=== PATIENT | male | born 1965 | race Caucasian/White ===

== ENCOUNTER 2018-06-25 14:55 | Inpatient (IN) | payer MEDICARE, MEDICAID ==
--- NOTE | 2018-06-25 15:59 | ED Physician Documentation ---
PD HPI SKIN - Stated complaint Stated Complaint: R FLANK RASH / MS - Chief complaint Chief Complaint: Abd Pain - History obtained from History obtained from: Patient - History of Present Illness Timing - onset: How many days ago (5-6) Timing - duration: Days (5-6) Timing - details: Gradual onset, Still present Location: Back, Other (left buttock and perineal area) Quality / character: Discolored (red), Swelling. No: Painful, Vesicular Associated symptoms: N/V/D (no vomiting but has had less appetite and intake, and has had diarrhea for several days.), Other (general weakness increased over baseline). No: Fever Contributing factors: Recent illness (He currently is having some nausea with less appetite and diarrhea for the last several days. He has chronic MS and usually is able to just transfer from bed to toilet and does have chronic weakn ess but lives at home with his significant other. The last 5 days he has been able to transfer due to increased weakness generally. He has had the diarrhea and been unable to get up and get cleaned well. His partner today noticed an extensive redness rash over the back buttocks and perineal area mainly on the right side. He has not had any noted fever. He denies significant pain to the area but says he usually does not have good sensation there.) Similar symptoms before: Has not had sx before (He has not had a exacerbation of weakness to this degree for many years. He previously had seen a neurologist who had clinics here at [facility]. He has not had a neurologist for several years. He is not on any MS medicines per se. He has been getting by at home with this his primary care provider. He had not had any recent change in medicines. No recent antibiotics.) Recently seen: Not recently seen Review of Systems Constitutional: denies: Fever Nose: denies: Rhinorrhea / runny nose, Congestion Throat: denies: Sore throat Cardiac: denies: Chest pain / pressure Respiratory: denies: Cough GI: reports: Nausea, Diarrhea. denies: Abdominal Pain, Vomiting Skin: reports: Rash (just noted today, but not sure of duration, looks several days in the developing.) Neurologic: reports: Generalized weakness. denies: Confused, Altered mental status, Headache PD PAST MEDICAL HISTORY - Past Medical History Past Medical History: Yes Cardiovascular: None Respiratory: None Neuro: Multiple sclerosis Endocrine/Autoimmune: Other Other Past Medical History: MS - Present Medications Home Medications: Ambulatory Orders Medication Instructions Recorded Confirmed Baclofen 20 mg PO BID PRN 06/25/18 06/25/18 Donepezil HCl 10 mg PO DAILY 06/25/18 06/25/18 Sertraline HCl 200 mg PO DAILY 06/25/18 06/25/18 - Allergies Allergies/Adverse Reactions: Allergies Allergy/AdvReac Type Severity Reaction Status Date / Time No Known Drug Allergies Allergy Verified 06/25/18 15:15 - Social History Does the pt smoke?: No Smoking Status: Never smoker Does the pt drink ETOH?: No Does the pt have substance abuse?: Yes Substance Use and Type: Marijuana PD ED PE NORMAL - Vitals Vital signs reviewed: Yes - General General: Alert and oriented X 3, Well developed/nourished - HEENT HEENT: Ears normal, Pharynx benign. No: Moist mucous membranes - Neck Neck: Supple, no meningeal sign, No adenopathy - Cardiac Cardiac: RRR (tachycardic), No murmur - Respiratory Respiratory: Clear bilaterally - Abdomen Abdomen: Normal bowel sounds, Soft, Non tender, Non distended, No organomegaly - Male Male : Other (redness of inguinal area and perirectal area but extensive cellulitis with surface yellow/green discharge. Red demarcation c/w some element of yeast. ) Results - Vitals Vitals: Vital Signs - 24 hr 06/25/18 06/25/18 06/25/18 15:08 15:23 17:36 Temperature 36.8 C Heart Rate 110 H 100 99 Respiratory 20 18 Rate Blood Pressure 138/101 H 150/101 H O2 Saturation 97 96 96 06/25/18 19:00 Temperature Heart Rate 86 Respiratory 20 Rate Blood Pressure 130/79 O2 Saturation 97 Oxygen O2 Source Room air - Labs Labs: Laboratory Tests 06/25/18 06/25/18 06/25/18 16:42 16:42 16:42 WBC 32.1 H RBC 4.90 Hgb 14.1 Hct 42.8 MCV 87.3 MCH 28.7 MCHC 32.9 RDW 13.6 Plt Count 428 MPV 8.8 Neut # (Auto) Not Reportable Lymph # (Auto) Not Reportable [place] # (Auto) Not Reportable Eos # (Auto) Not Reportable Baso # (Auto) Not Reportable Absolute Nucleated RBC Not Reportable Total Counted 100 Band Neuts % (Manual) 4 Abnorm Lymph % (Manual) 0 Metamyelocytes % 2 H Nucleated RBC % Not Reportable Neutrophils # (Manual) 28.6 H Lymphocytes # (Manual) 1.0 L Monocytes # (Manual) 1.6 H Eosinophils # (Manual) 0.3 Basophils # (Manual) 0.0 Differential Comment MANUAL DIFFERENTIAL Manual Slide Review Indicated Platelet Estimate NORMAL (130-450,000) Platelet Morphology NORMAL APPEARANCE RBC Morph Micro Appear NORMAL APPEARANCE Sodium 131 L Potassium 4.3 Chloride 93 L Carbon Dioxide 22 Anion Gap 16.0 H BUN 27 H Creatinine 1.0 Estimated GFR (MDRD) 78 L Glucose 117 H Lactic Acid 1.3 Calcium 8.8 Total Bilirubin 1.2 H AST 26 ALT 27 Alkaline Phosphatase 111 Total Creatine Kinase 57 Total Protein 7.3 Albumin 3.0 L Globulin 4.3 H Albumin/Globulin Ratio 0.7 L Lipase 42 Urine Color Urine Clarity Urine pH Ur Specific [place] Urine Protein Urine Glucose (UA) Urine Ketones Urine Occult Blood Urine Nitrite Urine Bilirubin Urine Urobilinogen Ur Leukocyte Esterase Urine RBC Urine WBC Ur Squamous Epith Cells Amorphous Sediment Urine Bacteria Ur Microscopic Review Urine Culture Comments 06/25/18 19:22 WBC RBC Hgb Hct MCV MCH MCHC RDW Plt Count MPV Neut # (Auto) Lymph # (Auto) [place] # (Auto) Eos # (Auto) Baso # (Auto) Absolute Nucleated RBC Total Counted Band Neuts % (Manual) Abnorm Lymph % (Manual) Metamyelocytes % Nucleated RBC % Neutrophils # (Manual) Lymphocytes # (Manual) Monocytes # (Manual) Eosinophils # (Manual) Basophils # (Manual) Differential Comment Manual Slide Review Platelet Estimate Platelet Morphology RBC Morph Micro Appear Sodium Potassium Chloride Carbon Dioxide Anion Gap BUN Creatinine Estimated GFR (MDRD) Glucose Lactic Acid Calcium Total Bilirubin AST ALT Alkaline Phosphatase Total Creatine Kinase Total Protein Albumin Globulin Albumin/Globulin Ratio Lipase Urine Color YELLOW Urine Clarity HAZY Urine pH 6.5 Ur Specific [place] 1.015 Urine Protein TRACE Urine Glucose (UA) NEGATIVE Urine Ketones 15 H Urine Occult Blood SMALL H Urine Nitrite NEGATIVE Urine Bilirubin NEGATIVE Urine Urobilinogen 1 (NORMAL) Ur Leukocyte Esterase TRACE H Urine RBC 0-5 Urine WBC 0-3 Ur Squamous Epith Cells MANY Squamous H Amorphous Sediment Moderate Urine Bacteria Few Ur Microscopic Review INDICATED Urine Culture Comments NOT INDICATED - Rads (name of study) abd/pelvic CT Radiology: Prelim report reviewed (cellulitic changes. No gas formation nor abscesses. No intraabdominal process), See rad report PD MEDICAL DECISION MAKING - ED course Complexity details: re-evaluated patient (He is given IV antibiotics to cover staph and strep and also given IV antifungals as it looks like some element of yeast infection 2. He is given significant IV hydration. We will obtain stool studies.), considered differential (Significant cellulitis. He has had diarrhea recently that can be evaluated with stool culture. This likely caused the exacerbation of weakness over his baseline MS. So he seems dehydrated and has had the diarrhea and but unable to get out of bed and has quite extensive yeast appearing and cellulitic rash over the right buttocks perineum and all the way on the right side of the back up to the scapular area. He does have an elevated white count. He has a bandemia. I believe he needs to be treated aggressively with IV medications and good hygiene and also a 10 to hydration in the diarrhea. He does not have markers of sepsis per se but still seems sick enough to be hospitalized. The CT scan does not show any evidence for necrotizing fasciitis nor clostridial type infection.), d/w patient Departure - Departure Disposition: 66 [facility] DC/Xfer Clinical Impression: Exacerbation of multiple sclerosis, Yeast infection of the skin Cellulitis Qualifiers: Site of cellulitis: trunk Site of cellulitis of trunk: back Qualified Code(s): L03.312 - Cellulitis of back [any part except buttock] Leukocytosis Qualifiers: Leukocytosis type: bandemia Qualified Code(s): D72.825 - Bandemia Diarrhea Qualifiers: Diarrhea type: unspecified type Qualified Code(s): R19.7 - Diarrhea, unspecified Condition: Stable Record reviewed to determine appropriate education?: Yes Discharge Date/Time: 06/25/18 20:17
[2018-06-25] MEDS ORDERED: SODIUM CHLORIDE 0.9% 1,000 ML IV ONE (16:25)
[2018-06-25] MEDS ORDERED: FLUCONAZOLE 200 MG/100 ML 100 ML IV ONE (16:26)
[2018-06-25] MEDS ORDERED: methylPREDNISolone SUCCINATE 500 MG in SODIUM CHLORIDE 0.9% 100ML 100 ML IV ONE (16:28)
[2018-06-25 16:51] LABS: BASOPHILS % (AUTO) 0.4 %; EOSINOPHILS % (AUTO) 0.2 %; HGB - HEMOGLOBIN 14.1 g/dL (14.0-18.0); LYMPHOCYTES % (AUTO) 3.5 %; MEAN CORPUSCULAR HEMOGLOBIN 28.7 pg (27.0-31.0); MEAN CORPUSCULAR HGB CONC 32.9 g/dL (32.0-36.0); MEAN CORPUSCULAR VOLUME 87.3 fL (80.0-94.0); MEAN PLATELET VOLUME 8.8 fL (7.4-11.4); MONOCYTES % (AUTO) 6.2 %; NEUTROPHILS % (AUTO) 89.7 %; PLT - PLATELET COUNT 428 10^3/uL (130-450); RED CELL DISTRIBUTION WIDTH 13.6 % (12.0-15.0); WHITE BLOOD COUNT 32.1 x10^3/uL (4.8-10.8)
[2018-06-25 16:54] LABS: ABNORMAL LYMPHS % (MANUAL) 0 %
--- NOTE | 2018-06-25 17:09 | XRAY Report ---
Reason: chest pain Procedure Date: 06/25/2018 Accession Number: [id number] / [id number] Procedure: XR - Chest 1 View X-Ray CPT Code: 06496 FULL RESULT: EXAM: CHEST RADIOGRAPHY EXAM DATE: 06/25/2018 04:41 PM. CLINICAL HISTORY: Chest pain. COMPARISON: None. TECHNIQUE: 1 view. FINDINGS: Lungs/Pleura: No focal opacities evident. No pleural effusion. No pneumothorax. Mediastinum: Within exam limitations, the cardiomediastinal contour is normal. Other: None. IMPRESSION: Normal single view chest. RADIA
[2018-06-25 17:16] LABS: BAND NEUTROPHILS % (MANUAL) 4 %; EOSINOPHILS # (MANUAL) 0.3 10^3/uL (0-0.7); LYMPHOCYTES % (MANUAL) 3 %; METAMYELOCYTES % (MANUAL) 2 %; MONOCYTES # (MANUAL) 1.6 10^3/uL (0.0-1.0); NEUTROPHILS # (MANUAL) 28.6 10^3/uL (1.5-6.6); NEUTROPHILS % (MANUAL) 85 %; PLATELET ESTIMATE, MANUAL NORMAL (130-450,000) (NORMAL); PLATELET MORPHOLOGY NORMAL APPEARANCE (NORMAL); RBC MORPHOLOGY (MULTIPLE) NORMAL APPEARANCE (NORMAL)
[2018-06-25 17:17] LABS: DIFFERENTIAL COMMENT MANUAL DIFFERENTIAL
[2018-06-25 17:20] LABS: ALBUMIN/GLOBULIN RATIO 0.7 (1.0-2.2); BILIRUBIN,TOTAL 1.2 mg/dL (0.2-1.0); CALCIUM 8.8 mg/dL (8.5-10.3); TOTAL PROTEIN 7.3 g/dL (6.7-8.2)
[2018-06-25] MEDS ORDERED: A & D OINTMENT 5 GM PACKET TOP STA (17:55)
[2018-06-25] MEDS ORDERED: VANCOMYCIN INJ 1 GM in SODIUM CHLORIDE 0.9% 500 ML IV STA (18:11)
[2018-06-25] MEDS ORDERED: IOVERSOL 320 100 ML VIAL IVP ONE ×2 (18:36→18:55)
[2018-06-25] MEDS ORDERED: SODIUM CHLORIDE 0.9% 100ML 100 ML IV ONE (18:44)
--- NOTE | 2018-06-25 19:28 | CT Report ---
Reason: extensive cellulitis back and buttocks Procedure Date: 06/25/2018 Accession Number: [id number] / [id number] Procedure: CT - Abdomen/Pelvis W/ CPT Code: FULL RESULT: EXAM: CT ABDOMEN AND PELVIS EXAM DATE: 06/25/2018 06:48 PM. CLINICAL HISTORY: Extensive cellulitis back and buttocks. COMPARISONS: None. TECHNIQUE: Routine helical CT imaging was performed through the abdomen and pelvis. IV contrast: OPTIRAY 320 90mL. Enteric contrast: No. Reconstructions: Coronal and sagittal. In accordance with CT protocol optimization, one or more of the following dose reduction techniques were utilized for this exam: automated exposure control, adjustment of mA and/or KV based on patient size, or use of iterative reconstructive technique. FINDINGS: Lung Bases: Small hernia noted. No effusions or cardiac enlargement. Coronary artery disease is present. Liver: Normal. No masses. Gallbladder/Bile Ducts: Unremarkable. Spleen: Normal. Pancreas: Normal. Adrenal Glands: Incidental nodular thickening of both adrenal glands is noted. Kidneys: Normal. No masses or hydronephrosis. Peritoneal Cavity/Bowel: Normal. No free fluid, free air or adenopathy. No masses or acute inflammatory process. There are multiple diverticula seen which most severely affect the sigmoid colon. No wall thickening or adjacent inflammation seen. No obstruction noted. The appendix is well visualized and normal. Pelvic Organs: Mild prostate and seminal vesicle enlargement with central coarse prostate calcifications. Small calcific density in the right posterior bladder noted. Otherwise, the bladder and visualized pelvic organs are within normal limits. No collections, ascites or adenopathy. Vasculature: Diffuse atheromatous plaques are present in the abdominal aorta and branch vessels. No aneurysm. Normal IVC. Bones: No significant abnormality. Other: Subcutaneous soft tissue fat stranding is noted in the anterior lateral right abdominal wall. Additional, mild to moderate right hip and left gluteal subcutaneous soft tissue stranding. No loculated collection concerning for an abscess. No subcutaneous emphysema. IMPRESSION: 1. Right hip, right anterior abdominal wall and left gluteal fat stranding. No collections concerning for an abscess. No subcutaneous emphysema. 2. Diverticulosis. Normal appendix. No inflammation or obstruction. 3. Right-sided bladder stone. Bladder otherwise unremarkable. RADIA
[2018-06-25 19:35] LABS: GLUCOSE, URINE (UA) NEGATIVE (NEGATIVE); KETONES,URINE (UA) 15 mg/dL (NEGATIVE); LEUKOCYTE ESTERASE, URINE TRACE (NEGATIVE); NITRITE,URINE NEGATIVE (NEGATIVE); OCCULT BLOOD,URINE SMALL (NEGATIVE); PH,URINE 6.5 PH (5.0-7.5); PROTEIN,URINE TRACE mg/dL (NEGATIVE); UROBILINOGEN,URINE 1 (NORMAL) E.U./dL (NORMAL)
[2018-06-25 19:38] LABS: BILIRUBIN,URINE NEGATIVE (NEGATIVE); CLARITY,URINE HAZY (CLEAR); ICTOTEST,URINE NEGATIVE
[2018-06-25] MEDS ORDERED: PROCHLORPERAZINE 10 MG/2 ML VIAL IVP PRN (19:47)
[2018-06-25] MEDS ORDERED: ONDANSETRON 4 MG/2 ML VIAL IVP PRN (19:47)
[2018-06-25] MEDS ORDERED: ZOLPIDEM 5 MG TABLET PO PRN (19:47)
[2018-06-25] MEDS ORDERED: IBUPROFEN 600 MG TABLET PO PRN (19:47)
[2018-06-25] MEDS ORDERED: oxyCODONE 5 MG TABLET PO PRN (19:47)
[2018-06-25] MEDS ORDERED: MORPHINE 2 MG/ML CARPUJECT IVP PRN (19:47)
[2018-06-25] MEDS ORDERED: BACLOFEN 10 MG TABLET PO PRN (19:49)
[2018-06-25 19:50] LABS: BACTERIA,URINE Few /HPF (None Seen); RBC,URINE 0-5 /HPF (0-5); SQUAMOUS EPITHELIAL CELL,UR MANY Squamous (<= Few)
[2018-06-25 19:51] LABS: AMORPHOUS SEDIMENT,UR Moderate /LPF
[2018-06-25] MEDS ORDERED: VANCOMYCIN PER PHARMACY 100 GM in SODIUM CHLORIDE 0.9% 250 ML IV SCH (20:00)
--- NOTE | 2018-06-25 20:46 | HISTORY & PHYSICAL EXAMINATION ---
Chief Complaint - Chief Complaint Chief Complaint: Leg weakness and rash in the buttock and groin History of Present Illness - Admitted From Admitted From:: Emergency department - History Obtained From Records Reviewed: Emergency department records History obtained from: Patient and Dr. Marrero, ED physician Exam Limitations: None - History of Present Illness HPI Comment/Other: Patient is a 52-year-old male with past medical history of multiple sclerosis who has had progressive weakness of the lower extremities over the last couple of weeks. He also developed diarrhea about 5 days ago as well as a rash in the groin and buttocks about 5 days ago as well. Patient states that because of the weakness, whereas he was previously able to at least transition from chair to bed and so on, he has been weak in both upper and more so lower extremities to the extent that he has been bedbound and he has also developed diarrhea in the last day or so which means he has been having bowel movements in bed and has remained soiled until his mother has been able to clean him. As she was cleaning him today she noticed that his rash around his lower back buttock and groin is getting worse and so she decided to bring him to the hospital. He denies any fever, pain, nausea or vomiting, headache, visual changes. He has chronic decreased sensation to the lower half of his body and states that this is currently at his baseline. While he has had diarrhea, he has not had any changes in his urinary habits. In the emergency room, the patient was found to have an elevated white count of 32, and due to the significance of the rash a CT scan of the abdomen and pelvis was ordered which does not demonstrate any evidence of gangrene, abscess, or loculated fluid collection. Findings are consistent with cellulitis. He was given a dose of vancomycin in the emergency room, and the hospitalist service was called to admit. History - Past Medical History Cardiovascular: reports: None Respiratory: reports: None Neuro: reports: Multiple sclerosis Endocrine/Autoimmune: reports: Other Other Past Medical History: MS - Family & Social History Family History: Mother: CVA/TIA Living arrangement: At home Living Situation: With family Social History Notes: Patient lives at home with his mother who is his primary caregiver. His PCP just retired and he is in the process of getting a new PCP through the same clinic. He has not seen a neurologist in at least a couple of years. - Substance History Use: Uses substance without health or social issues: Cannabis - POLST Patient has POLST: No POLST Status: Full Code Meds/Allgy - Home Medications Home Medications: Ambulatory Orders Medication Instructions Recorded Confirmed Baclofen 20 mg PO BID PRN 06/25/18 06/25/18 Donepezil HCl 10 mg PO DAILY 06/25/18 06/25/18 Sertraline HCl 200 mg PO DAILY 06/25/18 06/25/18 - Allergies Allergies/Adverse Reactions: Allergies Allergy/AdvReac Type Severity Reaction Status Date / Time No Known Drug Allergies Allergy Verified 06/25/18 15:15 Review of Systems - Constitutional Constitutional: reports: Fatigue, Weakness. denies: Fever, Chills - Gastrointestinal Gastrointestinal: reports: Diarrhea - Genitourinary Genitourinary: denies: Dysuria, Frequency, Urgency, Hematuria, Incontinence, Urethral discharge - Integumentary Integumentary: reports: Rash, Pigment changes - Neurological Neurological: reports: General weakness, Focal weakness (Total weakness of the lower extremity) - All Other Systems All Other Systems: reports: Reviewed and negative Prior Level of Functionality: Requires an membership assistant for primary ADLs Exam - Vital Signs Reviewed Vital Signs: Yes Vital Signs: Vital Signs x48h Temp Pulse Pulse Resp BP BP Pulse Ox 06/25/18 20:28 36.5 C 85 18 121/71 96 06/25/18 19:00 86 20 130/79 97 06/25/18 17:36 99 18 150/101 H 96 06/25/18 15:23 100 96 06/25/18 15:08 36.8 C 110 H 20 138/101 H 97 Vital Signs (72 hours) 06/25/18 06/25/18 06/25/18 15:08 15:23 17:36 Temperature 36.8 C Heart Rate 110 H 100 99 Heart Rate [ Brachial] Respiratory 20 18 Rate Blood Pressure 138/101 H 150/101 H Blood Pressure [Left Brachial artery] Blood Pressure [Right Brachial artery] O2 Saturation 97 96 96 06/25/18 06/25/18 06/25/18 19:00 20:28 23:36 Temperature 36.5 C 36.2 C L Heart Rate 86 Heart Rate [ 85 88 Brachial] Respiratory 20 18 18 Rate Blood Pressure 130/79 Blood Pressure 121/71 [Left Brachial artery] Blood Pressure 121/78 [Right Brachial artery] O2 Saturation 97 96 95 - Physical Exam General Appearance: positive: No acute distress Eyes Bilateral: positive: Normal inspection ENT: positive: ENT inspection nml Neck: positive: Nml inspection Respiratory: positive: Chest non-tender, No respiratory distress, Breath sounds nml Cardiovascular: positive: Regular rate & rhythm, No murmur, No gallop Abdomen: positive: Non-tender, No organomegaly, Nml bowel sounds, No distention Skin: positive: Skin rash, Other (Multiple areas of extensive erythema as well as a few excoriations in the areas of the groin, lower back and buttock. Please see photographs taken by nurses for further details.There is also a malodor and he does have findings consistent with Quynh in the skin folds of the lower abdomen and groin) Extremities: positive: Other (Patient has contractures of both feet right worse than left, consistent with multiple sclerosis and long-term immobilization) Neurologic/Psychiatric: positive: Oriented x3, CN's nml (2-12), Motor nml, Sensation nml Sepsis Event Note (H) - Evaluation Current Stage of Sepsis: Ruled out Conclusion/Plan - Problem List (1) Cellulitis of buttock Conclusion/Plan: Likely secondary to decubitus ulcer with contribution from recent diarrhea allowing entry point for infection. Due to the exposure of fecal material will cover for both gram-negative and gram-positive with vancomycin and Zosyn and follow CBC daily. Despite the highly elevated white blood cell count, he has normal vital signs and does not appear to be septic at this point. Will monitor closely. We will also get a wound care consult. (2) Quynh infection of genital region Conclusion/Plan: Due to obesity and prolonged immobilization, and likely need nystatin powder ordered. (3) Diarrhea Conclusion/Plan: Unclear if this is viral or C. difficile or functional. Stool Sample ordered and results pending. Qualifiers: Diarrhea type: unspecified type Qualified Code(s): R19.7 - Diarrhea, unspecified (4) Leukocytosis Conclusion/Plan: Likely secondary to the cellulitis, will continue to monitor with IV antibiotics. Qualifiers: Leukocytosis type: bandemia Qualified Code(s): D72.825 - Bandemia (5) Multiple sclerosis Conclusion/Plan: Patient also seems to be experiencing worsening of his multiple sclerosis, which is not a reason for admission or an acute problem but he does need to be reestablished with a neurologist and perhaps a discharge we can help make some recommendations for him once he is able to reestablish with his PCP. At this point however I do not think he needs any urgent neurology consultation. - Lab Results Lab results reviewed: Yes Nawaf Bones: 06/25/18 16:42 06/25/18 16:42 - Diagnostic Imaging Results Diagnostic Imaging Results: positive: Final report reviewed Core Measures - Anticipated LOS I expect patient to be DC'd or transferred within 96 hours.: Yes - DVT/VTE - Prophylaxis VTE/DVT Device ordered at admit?: Yes
[2018-06-25] MEDS: NYSTATIN POWDER 15 GM TOP SCH (21:38)
[2018-06-25] MEDS: PIPERACILLIN/TAZOBACTAM 3.375 GM in SODIUM CHLORIDE 0.9% MINIBAG 100 ML IV SCH (21:39)
[2018-06-25] MEDS ORDERED: VANCOMYCIN INJ 1 GM in SODIUM CHLORIDE 0.9% 250 ML IV SCH (22:00)
[2018-06-26] MEDS: SODIUM CHLORIDE FLUSH 0.9% 10 ML SYRINGE IVP SCH ×3 (01:04→17:21)
[2018-06-26] MEDS: PIPERACILLIN/TAZOBACTAM 3.375 GM in SODIUM CHLORIDE 0.9% MINIBAG 100 ML IV SCH ×4 (02:50→22:42)
[2018-06-26] MEDS: PANTOPRAZOLE 40 MG TABLET PO SCH (06:18)
[2018-06-26 06:44] LABS: HGB - HEMOGLOBIN 11.7 g/dL (14.0-18.0); MEAN CORPUSCULAR HEMOGLOBIN 29.4 pg (27.0-31.0); MEAN CORPUSCULAR HGB CONC 33.2 g/dL (32.0-36.0); MEAN CORPUSCULAR VOLUME 88.7 fL (80.0-94.0); MEAN PLATELET VOLUME 8.7 fL (7.4-11.4); RED BLOOD COUNT 3.97 10^6/uL (4.70-6.10); RED CELL DISTRIBUTION WIDTH 13.6 % (12.0-15.0); WHITE BLOOD COUNT 24.5 x10^3/uL (4.8-10.8)
[2018-06-26 06:53] LABS: CALCIUM 8.4 mg/dL (8.5-10.3); CREATININE 0.9 mg/dL (0.6-1.2)
[2018-06-26] MEDS ORDERED: VANCOMYCIN INJ 1.5 GM in SODIUM CHLORIDE 0.9% 500 ML IV SCH (08:00)
[2018-06-26] MEDS: SERTRALINE 50 MG TABLET PO SCH (08:28)
[2018-06-26] MEDS: DONEPEZIL 5 MG TABLET PO SCH (08:29)
[2018-06-26] MEDS: VANCOMYCIN INJ 2 GM in SODIUM CHLORIDE 0.9% 500 ML IV SCH ×2 (08:33→20:31)
[2018-06-26] MEDS: ENOXAPARIN 40 MG/0.4 ML SYRINGE SUBQ SCH (08:38)
[2018-06-26] MEDS: NYSTATIN POWDER 15 GM TOP SCH ×2 (08:39→20:32)
[2018-06-26] MEDS: POLYETHYLENE GLYCOL 3350 17 GM PACKET PO SCH (08:39)
--- NOTE | 2018-06-26 10:31 | PROVIDER PROGRESS NOTE ---
Subjective - Prog Note Date Prog Note Date: 06/26/18 - Subjective Pt reports feeling: Improved Subjective: pt report he feel better, no fever or chill. he denies chest pain, cough, abdominal pain, SOB. Current Medications - Current Medications Current Medications: Active Medications Baclofen (Lioresal) 20 mg PO BID PRN PRN Reason: Spasms Last Admin: 06/25/18 21:39 Dose: 20 mg Donepezil HCl (Aricept) 10 mg PO DAILY [facility] Last Admin: 06/26/18 08:29 Dose: 10 mg Enoxaparin Sodium (Lovenox) 40 mg SUBQ DAILY [facility] Last Admin: 06/26/18 08:38 Dose: 40 mg Piperacillin Sod/Tazobactam (Sod 3.375 gm/ Sodium Chloride) 100 mls @ 200 mls/hr IV Q6H [facility] Last Infusion: 06/26/18 03:30 Dose: Infused Vancomycin HCl 2 gm/ Sodium (Chloride) 500 mls @ 250 mls/hr IV Q12H [facility] Last Admin: 06/26/18 08:33 Dose: 250 mls/hr Ibuprofen (Motrin) 600 mg PO Q6HR PRN PRN Reason: Pain 1 to 4 Morphine Sulfate (Morphine (Carpuject)) 2 mg IVP Q2HR PRN PRN Reason: Pain 8 to 10 Nystatin (Nystop) 0 applic TOP BID [facility] Last Admin: 06/26/18 08:39 Dose: 1 applic Ondansetron HCl (Zofran Inj) 4 mg IVP Q6HR PRN PRN Reason: Nausea / Vomiting Oxycodone HCl (Roxicodone) 5 mg PO Q4HR PRN PRN Reason: Pain 5 to 7 Pantoprazole Sodium (Protonix) 40 mg PO QDAC [facility] Last Admin: 06/26/18 06:18 Dose: 40 mg Polyethylene Glycol (Miralax) 17 gm PO DAILY [facility] Last Admin: 06/26/18 08:39 Dose: Not Given Prochlorperazine Edisylate (Compazine Inj) 10 mg IVP Q6HR PRN PRN Reason: Nausea / Vomiting Saccharomyces Boulardii (Florastor) 250 mg PO BIDWM [facility] Sertraline HCl (Zoloft) 200 mg PO DAILY [facility] Last Admin: 06/26/18 08:28 Dose: 200 mg Sodium Chloride (Normal Saline Flush 0.9%) 10 ml IVP PRN PRN PRN Reason: NEEDED PER PROVIDER ORDERS Sodium Chloride (Normal Saline Flush 0.9%) 10 ml IVP 0100,0900,1700 [facility] Last Admin: 06/26/18 08:30 Dose: 10 ml Zolpidem Tartrate (Ambien) 5 mg PO QPM PRN PRN Reason: Insomnia Baclofen 20 mg PO BID PRN 06/25/18 Donepezil HCl 10 mg PO DAILY 06/25/18 Sertraline HCl 200 mg PO DAILY 06/25/18 Objective - Vital Signs/Intake & Output Reviewed Vital Signs: Yes Vital Signs: Vital Signs x48h Temp Pulse Resp BP Pulse Ox 06/26/18 08:00 36.6 C 67 20 123/73 95 Intake & Output: Intake & Output 06/23/18 06/24/18 06/25/18 06/26/18 23:59 23:59 23:59 23:59 Intake Total 1800 350 Output Total 100 Balance 1800 250 - Objective General Appearance: positive: No acute distress, Alert. negative: Lethargic Eyes Bilateral: positive: Normal inspection, PERRL, No lid inflammation, Conjunctivae nml ENT: positive: ENT inspection nml, Pharynx nml, No signs of dehydration. negative: Purulent nasal drainage, Pharyngeal erythema, Oral lesions Neck: positive: Nml inspection, Thyroid nml, No JVD, Trachea midline. negative: Thyromegaly, Lymphadenopathy (R), Lymphadenopathy (L), Stiff neck, Swelling/bruising, Tracheal deviation Respiratory: positive: Chest non-tender, No respiratory distress, Breath sounds nml. negative: Wheezes, Rales, Rhonchi Cardiovascular: positive: Regular rate & rhythm, No murmur, No gallop. negative: Irregularly irregular, Extrasystoles, Tachycardia, Bradycardia, JVD present, Systolic murmur, Diastolic murmur Peripheral Pulses: 2+ Radial (R), 2+ Radial (L), 2+ Dorsalis pedis (R), 2+ Dorsalis pedis (L) Abdomen: positive: Non-tender, No organomegaly, Nml bowel sounds, No distention. negative: Tenderness, Guarding, Rebound Back: positive: Nml inspection. negative: CVA tenderness (R), CVA tenderness (L) Skin: positive: Warm, Dry, Skin rash. negative: Cyanosis, Diaphoresis, Pallor Extremities: positive: Non-tender. negative: Calf tenderness, Joint swelling, Naomi's sign/cords Neurologic/Psychiatric: positive: Oriented x3, Mood/affect nml. negative: Weakness, Sensory loss, Facial droop, Slurred/abnml speech, Depressed mood/a ffect - Lab Results Fish Bones: 06/26/18 06:18 06/26/18 06:18 Other Labs: Lab Results x24hrs 06/26/18 06/26/18 06/25/18 Range/Units 06:18 06:18 19:22 WBC 24.5 H (4.8-10.8) x10^3/uL RBC 3.97 L (4.70-6.10) 10^6/uL Hgb 11.7 L (14.0-18.0) g/dL Hct 35.2 L (42.0-52.0) % MCV 88.7 (80.0-94.0) fL MCH 29.4 (27.0-31.0) pg MCHC 33.2 (32.0-36.0) g/dL RDW 13.6 (12.0-15.0) % Plt Count 363 (130-450) 10^3/uL MPV 8.7 (7.4-11.4) fL Neut # (Auto) Lymph # (Auto) Meagher # (Auto) Eos # (Auto) Baso # (Auto) Absolute Nucleated RBC Total Counted Band Neuts % (Manual) (0 - 10) % Abnorm Lymph % (Manual) % Metamyelocytes % ( - 0) % Nucleated RBC % Neutrophils # (Manual) (1.5-6.6) 10^3/uL Lymphocytes # (Manual) (1.5-3.5) 10^3/uL Monocytes # (Manual) (0.0-1.0) 10^3/uL Eosinophils # (Manual) (0-0.7) 10^3/uL Basophils # (Manual) (0-0.1) 10^3/uL Differential Comment Manual Slide Review Platelet Estimate (NORMAL) Platelet Morphology (NORMAL) RBC Morph Micro Appear (NORMAL) Sodium 135 (135-145) mmol/L Potassium 4.3 (3.5-5.0) mmol/L Chloride 103 (101-111) mmol/L Carbon Dioxide 21 (21-32) mmol/L Anion Gap 11.0 (6-13) BUN 27 H (6-20) mg/dL Creatinine 0.9 (0.6-1.2) mg/dL Estimated GFR (MDRD) 89 (>89) Glucose 138 H (70-100) mg/dL Lactic Acid (0.5-2.2) mmol/L Calcium 8.4 L (8.5-10.3) mg/dL Total Bilirubin (0.2-1.0) mg/dL AST (10-42) IU/L ALT (10-60) IU/L Alkaline Phosphatase (42-121) IU/L Total Creatine Kinase (22-269) IU/L Total Protein (6.7-8.2) g/dL Albumin (3.2-5.5) g/dL Globulin (2.1-4.2) g/dL Albumin/Globulin Ratio (1.0-2.2) Lipase (22-51) U/L Urine Color YELLOW Urine Clarity HAZY (CLEAR) Urine pH 6.5 (5.0-7.5) PH Ur Specific [place] 1.015 (1.002-1.030) Urine Protein TRACE (NEGATIVE) mg/dL Urine Glucose (UA) NEGATIVE (NEGATIVE) mg/dL Urine Ketones 15 H (NEGATIVE) mg/dL Urine Occult Blood SMALL H (NEGATIVE) Urine Nitrite NEGATIVE (NEGATIVE) Urine Bilirubin NEGATIVE (NEGATIVE) Urine Urobilinogen 1 (NORMAL) (NORMAL) E.U./dL Ur Leukocyte Esterase TRACE H (NEGATIVE) Urine RBC 0-5 (0-5) /HPF Urine WBC 0-3 (0-3) /HPF Ur Squamous Epith Cells MANY Squamous H (<= Few) Amorphous Sediment Moderate /LPF Urine Bacteria Few (None Seen) /HPF Ur Microscopic Review INDICATED Urine Culture Comments NOT INDICATED 06/25/18 06/25/18 06/25/18 Range/Units 16:42 16:42 16:42 WBC 32.1 H (4.8-10.8) x10^3/uL RBC 4.90 (4.70-6.10) 10^6/uL Hgb 14.1 (14.0-18.0) g/dL Hct 42.8 (42.0-52.0) % MCV 87.3 (80.0-94.0) fL MCH 28.7 (27.0-31.0) pg MCHC 32.9 (32.0-36.0) g/dL RDW 13.6 (12.0-15.0) % Plt Count 428 (130-450) 10^3/uL MPV 8.8 (7.4-11.4) fL Neut # (Auto) Not Reportable Lymph # (Auto) Not Reportable Meagher # (Auto) Not Reportable Eos # (Auto) Not Reportable Baso # (Auto) Not Reportable Absolute Nucleated RBC Not Reportable Total Counted 100 Band Neuts % (Manual) 4 (0 - 10) % Abnorm Lymph % (Manual) 0 % Metamyelocytes % 2 H ( - 0) % Nucleated RBC % Not Reportable Neutrophils # (Manual) 28.6 H (1.5-6.6) 10^3/uL Lymphocytes # (Manual) 1.0 L (1.5-3.5) 10^3/uL Monocytes # (Manual) 1.6 H (0.0-1.0) 10^3/uL Eosinophils # (Manual) 0.3 (0-0.7) 10^3/uL Basophils # (Manual) 0.0 (0-0.1) 10^3/uL Differential Comment MANUAL DIFFERENTIAL Manual Slide Review Indicated Platelet Estimate NORMAL (130-450,000) (NORMAL) Platelet Morphology NORMAL APPEARANCE (NORMAL) RBC Morph Micro Appear NORMAL APPEARANCE (NORMAL) Sodium 131 L (135-145) mmol/L Potassium 4.3 (3.5-5.0) mmol/L Chloride 93 L (101-111) mmol/L Carbon Dioxide 22 (21-32) mmol/L Anion Gap 16.0 H (6-13) BUN 27 H (6-20) mg/dL Creatinine 1.0 (0.6-1.2) mg/dL Estimated GFR (MDRD) 78 L (>89) Glucose 117 H (70-100) mg/dL Lactic Acid 1.3 (0.5-2.2) mmol/L Calcium 8.8 (8.5-10.3) mg/dL Total Bilirubin 1.2 H (0.2-1.0) mg/dL AST 26 (10-42) IU/L ALT 27 (10-60) IU/L Alkaline Phosphatase 111 (42-121) IU/L Total Creatine Kinase 57 (22-269) IU/L Total Protein 7.3 (6.7-8.2) g/dL Albumin 3.0 L (3.2-5.5) g/dL Globulin 4.3 H (2.1-4.2) g/dL Albumin/Globulin Ratio 0.7 L (1.0-2.2) Lipase 42 (22-51) U/L Urine Color Urine Clarity (CLEAR) Urine pH (5.0-7.5) PH Ur Specific [place] (1.002-1.030) Urine Protein (NEGATIVE) mg/dL Urine Glucose (UA) (NEGATIVE) mg/dL Urine Ketones (NEGATIVE) mg/dL Urine Occult Blood (NEGATIVE) Urine Nitrite (NEGATIVE) Urine Bilirubin (NEGATIVE) Urine Urobilinogen (NORMAL) E.U./dL Ur Leukocyte Esterase (NEGATIVE) Urine RBC (0-5) /HPF Urine WBC (0-3) /HPF Ur Squamous Epith Cells (<= Few) Amorphous Sediment /LPF Urine Bacteria (None Seen) /HPF Ur Microscopic Review Urine Culture Comments ABX Reporting Has patient been on IV antibiotics over the past 48 hours?: Yes Sepsis Event Note (H) - Evaluation Current Stage of Sepsis: Ruled out Assessment/Plan - Problem List (1) Cellulitis of buttock Impression: improved. redness and swelling are reduced. WBC is reduced to 24 from 32. no fever, chill. continue antibiotics Zosyn and Vancomycin, add Probiotics blood culture is pending, followup wound care is pending (2) Quynh infection of genital region improved, and dry skin now continue nystatin powder turn pt Q2H for prevention of pressure ulcer (3) Diarrhea stool sample was sent and pending test, followup (4) Leukocytosis Conclusion/Plan: WBC 24 from 32, improved continue antibiotics continue lab and vital monitor (5) Multiple sclerosis Conclusion/Plan: chronic worsening of his MS. discussed with pt and his mother. Pt's mother state pt had social psychologist to help him. They will find PCP and followup neurologist for him.
[2018-06-26] MEDS: SACCHAROMYCES BOULARDII 250 MG CAPSULE PO SCH (17:22)
[2018-06-27] MEDS: PIPERACILLIN/TAZOBACTAM 3.375 GM in SODIUM CHLORIDE 0.9% MINIBAG 100 ML IV SCH ×3 (05:11→16:37)
[2018-06-27] MEDS: SODIUM CHLORIDE FLUSH 0.9% 10 ML SYRINGE IVP SCH ×4 (05:13→23:56)
[2018-06-27 06:35] LABS: HGB - HEMOGLOBIN 10.3 g/dL (14.0-18.0); MEAN CORPUSCULAR HEMOGLOBIN 29.2 pg (27.0-31.0); MEAN CORPUSCULAR HGB CONC 33.1 g/dL (32.0-36.0); MEAN CORPUSCULAR VOLUME 88.3 fL (80.0-94.0); MEAN PLATELET VOLUME 8.3 fL (7.4-11.4); RED BLOOD COUNT 3.52 10^6/uL (4.70-6.10); RED CELL DISTRIBUTION WIDTH 13.2 % (12.0-15.0); WHITE BLOOD COUNT 13.4 x10^3/uL (4.8-10.8)
[2018-06-27 06:37] LABS: CREATININE 0.9 mg/dL (0.6-1.2)
[2018-06-27] MEDS: PANTOPRAZOLE 40 MG TABLET PO SCH (07:30)
[2018-06-27 07:45] LABS: VANCOMYCIN,TROUGH 20.9 ug/mL (10.0-20.0)
[2018-06-27] MEDS ORDERED: VANCOMYCIN INJ 1 GM, VANCOMYCIN INJ 500 MG in SODIUM CHLORIDE 0.9% 500 ML IV SCH (09:00)
[2018-06-27] MEDS: DONEPEZIL 5 MG TABLET PO SCH (09:07)
[2018-06-27] MEDS: SERTRALINE 50 MG TABLET PO SCH (09:28)
[2018-06-27] MEDS: SACCHAROMYCES BOULARDII 250 MG CAPSULE PO SCH ×2 (09:29→16:37)
[2018-06-27] MEDS: ENOXAPARIN 40 MG/0.4 ML SYRINGE SUBQ SCH (09:30)
[2018-06-27] MEDS: NYSTATIN POWDER 15 GM TOP SCH ×2 (09:31→21:15)
[2018-06-27] MEDS: POLYETHYLENE GLYCOL 3350 17 GM PACKET PO SCH (09:32)
--- NOTE | 2018-06-27 11:52 | PROVIDER PROGRESS NOTE ---
Subjective - Prog Note Date Prog Note Date: 06/27/18 - Subjective Pt reports feeling: Improved Subjective: pt report " I think I am better." pt denies fever, chill, cough, SOB, chest pain. Current Medications - Current Medications Current Medications: Active Medications Baclofen (Lioresal) 20 mg PO BID PRN PRN Reason: Spasms Last Admin: 06/25/18 21:39 Dose: 20 mg Donepezil HCl (Aricept) 10 mg PO DAILY [facility] Last Admin: 06/27/18 09:07 Dose: 10 mg Enoxaparin Sodium (Lovenox) 40 mg SUBQ DAILY [facility] Last Admin: 06/27/18 09:30 Dose: 40 mg Piperacillin Sod/Tazobactam (Sod 3.375 gm/ Sodium Chloride) 100 mls @ 200 mls/hr IV Q6H [facility] Last Infusion: 06/27/18 06:13 Dose: Infused Vancomycin HCl 1 gm/Vancomycin HCl 500 mg/ Sodium Chloride 500 mls @ 250 mls/hr IV Q12H [facility] Last Infusion: 06/27/18 11:34 Dose: Infused Ibuprofen (Motrin) 600 mg PO Q6HR PRN PRN Reason: Pain 1 to 4 Morphine Sulfate (Morphine (Carpuject)) 2 mg IVP Q2HR PRN PRN Reason: Pain 8 to 10 Nystatin (Nystop) 0 applic TOP BID [facility] Last Admin: 06/27/18 09:31 Dose: 1 applic Ondansetron HCl (Zofran Inj) 4 mg IVP Q6HR PRN PRN Reason: Nausea / Vomiting Oxycodone HCl (Roxicodone) 5 mg PO Q4HR PRN PRN Reason: Pain 5 to 7 Pantoprazole Sodium (Protonix) 40 mg PO QDAC [facility] Last Admin: 06/27/18 07:30 Dose: 40 mg Polyethylene Glycol (Miralax) 17 gm PO DAILY [facility] Last Admin: 06/27/18 09:32 Dose: Not Given Prochlorperazine Edisylate (Compazine Inj) 10 mg IVP Q6HR PRN PRN Reason: Nausea / Vomiting Saccharomyces Boulardii (Florastor) 250 mg PO BIDWM [facility] Last Admin: 06/27/18 09:29 Dose: 250 mg Sertraline HCl (Zoloft) 200 mg PO DAILY [facility] Last Admin: 06/27/18 09:28 Dose: 200 mg Sodium Chloride (Normal Saline Flush 0.9%) 10 ml IVP PRN PRN PRN Reason: NEEDED PER PROVIDER ORDERS Sodium Chloride (Normal Saline Flush 0.9%) 10 ml IVP 0100,0900,1700 [facility] Last Admin: 06/27/18 09:09 Dose: 10 ml Zolpidem Tartrate (Ambien) 5 mg PO QPM PRN PRN Reason: Insomnia Baclofen 20 mg PO BID PRN 06/25/18 Donepezil HCl 10 mg PO DAILY 06/25/18 Sertraline HCl 200 mg PO DAILY 06/25/18 Objective - Vital Signs/Intake & Output Reviewed Vital Signs: Yes Vital Signs: Vital Signs x48h Temp Pulse Resp BP Pulse Ox 06/27/18 08:00 36.4 C L 66 18 100/53 L 96 Intake & Output: Intake & Output 06/24/18 06/25/18 06/26/18 06/27/18 23:59 23:59 23:59 23:59 Intake Total 1800 2737 900 Output Total 201 550 Balance 1800 2536 350 - Objective General Appearance: positive: No acute distress, Alert. negative: Lethargic Eyes Bilateral: positive: Normal inspection, PERRL, No lid inflammation, Conjunctivae nml ENT: positive: ENT inspection nml, Pharynx nml, No signs of dehydration. negative: Purulent nasal drainage, Pharyngeal erythema, Oral lesions Neck: positive: Nml inspection, Thyroid nml, No JVD, Trachea midline. negative: Thyromegaly, Lymphadenopathy (R), Lymphadenopathy (L), Stiff neck, Swelling/brui sing, Tracheal deviation Respiratory: positive: Chest non-tender, No respiratory distress, Breath sounds nml. negative: Wheezes, Rales, Rhonchi Cardiovascular: positive: Regular rate & rhythm, No murmur, No gallop. negative: Irregularly irregular, Extrasystoles, Tachycardia, Bradycardia, JVD present, Systolic murmur, Diastolic murmur Peripheral Pulses: 2+ Radial (R), 2+ Radial (L), 2+ Dorsalis pedis (R), 2+ Dorsalis pedis (L) Abdomen: positive: Non-tender, No organomegaly, Nml bowel sounds, No distention. negative: Tenderness, Guarding, Rebound Back: positive: Nml inspection. negative: CVA tenderness (R), CVA tenderness (L) Skin: positive: Warm, Dry, Skin rash, Decubitus Extremities: positive: Non-tender, Nml appearance. negative: Calf tenderness, Joint swelling, Naomi's sign/cords Neurologic/Psychiatric: positive: Sensation nml, Mood/affect nml. negative: Weakness, Sensory loss, Facial droop, Slurred/abnml speech, Depressed mood/affect - Lab Results Fish Bones: 06/27/18 06:19 06/27/18 06:19 Other Labs: Lab Results x24hrs 06/27/18 06/27/18 06/27/18 Range/Units 07:27 06:19 06:19 WBC 13.4 H (4.8-10.8) x10^3/uL RBC 3.52 L (4.70-6.10) 10^6/uL Hgb 10.3 L (14.0-18.0) g/dL Hct 31.1 L (42.0-52.0) % MCV 88.3 (80.0-94.0) fL MCH 29.2 (27.0-31.0) pg MCHC 33.1 (32.0-36.0) g/dL RDW 13.2 (12.0-15.0) % Plt Count 321 (130-450) 10^3/uL MPV 8.3 (7.4-11.4) fL Sodium 142 (135-145) mmol/L Potassium 3.7 (3.5-5.0) mmol/L Chloride 107 (101-111) mmol/L Carbon Dioxide 24 (21-32) mmol/L Anion Gap 11.0 (6-13) BUN 23 H (6-20) mg/dL Creatinine 0.9 (0.6-1.2) mg/dL Estimated GFR (MDRD) 89 (>89) Glucose 109 H (70-100) mg/dL Calcium 8.0 L (8.5-10.3) mg/dL Last Dose Date 06/26/18 Last Dose Time 2231 Vancomycin Trough 20.9 H (10.0-20.0) ug/mL ABX Reporting Has patient been on IV antibiotics over the past 48 hours?: Yes Sepsis Event Note (H) - Evaluation Current Stage of Sepsis: Ruled out Assessment/Plan - Problem List (1) Cellulitis of buttock Impression: 06/27 improved. WBC is down to 13 from 32, no fever,chill. blood culture preliminary are negative. Redness and welling are reduced continue antibiotics skin and wound care lab and vital monitor turn pt. pt's infection mainly locate at right side, turn on left side and Q2H improved. redness and swelling are reduced. WBC is reduced to 24 from 32. no fever, chill. continue antibiotics Zosyn and Vancomycin, add Probiotics blood culture is pending, followup wound care is pending (2) Quynh infection of genital region 06/27 improved, continue nystatin top improved, and dry skin now continue nystatin powder turn pt Q2H for prevention of pressure ulcer (3) Diarrhea 06/27better, C.Diff is negative stool sample was sent and pending test, followup (4) Leukocytosis Conclusion/Plan: 06/27improved, WBC is 13 now continue antibiotics WBC 24 from 32, improved continue antibiotics continue lab and vital monitor (5) Multiple sclerosis Conclusion/Plan: 06/27 stable chronic worsening of his MS. discussed with pt and his mother. Pt's mother state pt had social studies teacher to help him. They will find PCP and followup neurologist for him. (6) skin ulcer of abdomen with fat layer exposed pt present skin ulcer at right abdominal fat layer continue Nystatin TOP, keep dry, void weight pressure continue antibiotics wound consutlt (7) weakness PT/OT evaluation and treatment, will followup recommend
[2018-06-27] MEDS: SODIUM CHLORIDE FLUSH 0.9% 10 ML SYRINGE IVP PRN ×2 (12:54→17:26)
[2018-06-27] MEDS: cefUROXime axetil 250 MG TABLET PO SCH (21:14)
[2018-06-27] MEDS: SULFAMETH/TRIMETH DS 800/160 MG TABLET PO SCH (21:15)
[2018-06-28 05:36] LABS: CALCIUM 8.1 mg/dL (8.5-10.3); CREATININE 0.7 mg/dL (0.6-1.2); HGB - HEMOGLOBIN 10.6 g/dL (14.0-18.0); MEAN CORPUSCULAR HEMOGLOBIN 29.7 pg (27.0-31.0); MEAN CORPUSCULAR HGB CONC 33.4 g/dL (32.0-36.0); MEAN CORPUSCULAR VOLUME 88.9 fL (80.0-94.0); RED BLOOD COUNT 3.57 10^6/uL (4.70-6.10); RED CELL DISTRIBUTION WIDTH 13.3 % (12.0-15.0); WHITE BLOOD COUNT 11.3 x10^3/uL (4.8-10.8)
[2018-06-28] MEDS: PANTOPRAZOLE 40 MG TABLET PO SCH (06:49)
[2018-06-28] MEDS ORDERED: POTASSIUM CHLORIDE 20 MEQ TABLET PO ONE (07:44)
[2018-06-28] MEDS: POLYETHYLENE GLYCOL 3350 17 GM PACKET PO SCH (09:25)
[2018-06-28] MEDS: SERTRALINE 50 MG TABLET PO SCH (09:26)
[2018-06-28] MEDS: SULFAMETH/TRIMETH DS 800/160 MG TABLET PO SCH ×2 (09:26→21:34)
[2018-06-28] MEDS: cefUROXime axetil 250 MG TABLET PO SCH ×2 (09:26→21:33)
[2018-06-28] MEDS: SACCHAROMYCES BOULARDII 250 MG CAPSULE PO SCH ×2 (09:26→16:49)
[2018-06-28] MEDS: DONEPEZIL 5 MG TABLET PO SCH (09:26)
[2018-06-28] MEDS: ENOXAPARIN 40 MG/0.4 ML SYRINGE SUBQ SCH (09:34)
[2018-06-28] MEDS: SODIUM CHLORIDE FLUSH 0.9% 10 ML SYRINGE IVP SCH ×3 (09:35→16:49)
--- NOTE | 2018-06-28 11:28 | PROVIDER PROGRESS NOTE ---
Subjective - Prog Note Date Prog Note Date: 06/28/18 - Subjective Pt reports feeling: Improved Subjective: pt's skin opened wound turn dry and some in the healing process. pt report he feel better. he denies fever, chill, chest pain, cough, SOB Current Medications - Current Medications Current Medications: Active Medications Baclofen (Lioresal) 20 mg PO BID PRN PRN Reason: Spasms Last Admin: 06/25/18 21:39 Dose: 20 mg Cefuroxime Axetil (Ceftin) 500 mg PO BID [facility] Last Admin: 06/28/18 09:26 Dose: 500 mg Donepezil HCl (Aricept) 10 mg PO DAILY [facility] Last Admin: 06/28/18 09:26 Dose: 10 mg Enoxaparin Sodium (Lovenox) 40 mg SUBQ DAILY [facility] Last Admin: 06/28/18 09:34 Dose: 40 mg Ibuprofen (Motrin) 600 mg PO Q6HR PRN PRN Reason: Pain 1 to 4 Lactobacillus Rhamnosus (Culturelle) 1 cap PO DAILY [facility] Morphine Sulfate (Morphine (Carpuject)) 2 mg IVP Q2HR PRN PRN Reason: Pain 8 to 10 Nystatin (Nystop) 0 applic TOP BID [facility] Last Admin: 06/27/18 21:15 Dose: 1 applic Ondansetron HCl (Zofran Inj) 4 mg IVP Q6HR PRN PRN Reason: Nausea / Vomiting Oxycodone HCl (Roxicodone) 5 mg PO Q4HR PRN PRN Reason: Pain 5 to 7 Pantoprazole Sodium (Protonix) 40 mg PO QDAC [facility] Last Admin: 06/28/18 06:49 Dose: 40 mg Polyethylene Glycol (Miralax) 17 gm PO DAILY [facility] Last Admin: 06/28/18 09:25 Dose: Not Given Prochlorperazine Edisylate (Compazine Inj) 10 mg IVP Q6HR PRN PRN Reason: Nausea / Vomiting Saccharomyces Boulardii (Florastor) 250 mg PO BIDWM [facility] Last Admin: 06/28/18 09:26 Dose: 250 mg Sertraline HCl (Zoloft) 200 mg PO DAILY [facility] Last Admin: 06/28/18 09:26 Dose: 200 mg Sodium Chloride (Normal Saline Flush 0.9%) 10 ml IVP PRN PRN PRN Reason: NEEDED PER PROVIDER ORDERS Last Admin: 06/27/18 17:26 Dose: 10 ml Sodium Chloride (Normal Saline Flush 0.9%) 10 ml IVP 0100,0900,1700 [facility] Last Admin: 06/28/18 09:49 Dose: Not Given Trimethoprim/Sulfamethoxazole (Bactrim Ds 800/160) 2 tab PO BID [facility] Last Admin: 06/28/18 09:26 Dose: 2 tab Zolpidem Tartrate (Ambien) 5 mg PO QPM PRN PRN Reason: Insomnia Baclofen 20 mg PO BID PRN 06/25/18 Donepezil HCl 10 mg PO DAILY 06/25/18 Sertraline HCl 200 mg PO DAILY 06/25/18 Objective - Vital Signs/Intake & Output Reviewed Vital Signs: Yes Vital Signs: Vital Signs x48h Temp Pulse Resp BP 06/28/18 08:00 36.7 C 82 18 133/79 H Intake & Output: Intake & Output 06/25/18 06/26/18 06/27/18 06/28/18 23:59 23:59 23:59 23:59 Intake Total 1800 2737 2797 120 Output Total 201 550 Balance 1800 2536 2247 120 - Objective General Appearance: positive: No acute distress, Alert. negative: Lethargic Eyes Bilateral: positive: Normal inspection, PERRL, No lid inflammation, C onjunctivae nml ENT: positive: ENT inspection nml, Pharynx nml, No signs of dehydration. negative: Purulent nasal drainage, Pharyngeal erythema, Oral lesions Neck: positive: Nml inspection, Thyroid nml, No JVD, Trachea midline. negative: Thyromegaly, Lymphadenopathy (R), Lymphadenopathy (L), Stiff neck, Swelling/bruising, Tracheal deviation Respiratory: positive: Chest non-tender, No respiratory distress, Breath sounds nml. negative: Wheezes, Rales, Rhonchi Cardiovascular: positive: Regular rate & rhythm, No murmur, No gallop. negative: Irregularly irregular, Extrasystoles, Tachycardia, Bradycardia, JVD present, Systolic murmur, Diastolic murmur Peripheral Pulses: 2+ Radial (R), 2+ Radial (L), 2+ Dorsalis pedis (R), 2+ Dorsalis pedis (L) Abdomen: positive: Non-tender, No organomegaly, Nml bowel sounds, No distention. negative: Tenderness, Guarding, Rebound Back: positive: Nml inspection. negative: CVA tenderness (R), CVA tenderness (L) Skin: positive: Warm, Dry, Skin rash, Decubitus, Laceration (cm). negative: Cyanosis, Diaphoresis, Pallor Extremities: positive: Non-tender, Nml appearance. negative: Calf tenderness, Joint swelling, Naomi's sign/cords Neurologic/Psychiatric: positive: Sensation nml, Mood/affect nml. negative: Weakness, Sensory loss, Facial droop, Slurred/abnml speech, Depressed mood/affect - Lab Results Fish Bones: 06/28/18 05:06 06/28/18 05:06 Other Labs: Lab Results x24hrs 06/28/18 06/28/18 Range/Units 05:06 05:06 WBC 11.3 H (4.8-10.8) x10^3/uL RBC 3.57 L (4.70-6.10) 10^6/uL Hgb 10.6 L (14.0-18.0) g/dL Hct 31.7 L (42.0-52.0) % MCV 88.9 (80.0-94.0) fL MCH 29.7 (27.0-31.0) pg MCHC 33.4 (32.0-36.0) g/dL RDW 13.3 (12.0-15.0) % Plt Count 311 (130-450) 10^3/uL MPV 8.0 (7.4-11.4) fL Sodium 140 (135-145) mmol/L Potassium 3.4 L (3.5-5.0) mmol/L Chloride 108 (101-111) mmol/L Carbon Dioxide 24 (21-32) mmol/L Anion Gap 8.0 (6-13) BUN 14 (6-20) mg/dL Creatinine 0.7 (0.6-1.2) mg/dL Estimated GFR (MDRD) 118 (>89) Glucose 100 (70-100) mg/dL Calcium 8.1 L (8.5-10.3) mg/dL ABX Reporting Has patient been on IV antibiotics over the past 48 hours?: Yes Sepsis Event Note (H) - Evaluation Current Stage of Sepsis: Ruled out Assessment/Plan - Problem List (1) Cellulitis of buttock Impression: 06/28 improved. skin is dry now, and some wound is in the healing process now. wound care consult, continue wound care WBC is 11.3, continue antibiotics wound culture continue Nystatin power 06/27 improved. WBC is down to 13 from 32, no fever,chill. blood culture preliminary are negative. Redness and welling are reduced continue antibiotics skin and wound care lab and vital monitor turn pt. pt's infection mainly locate at right side, turn on left side and Q2H improved. redness and swelling are reduced. WBC is reduced to 24 from 32. no fever, chill. continue antibiotics Zosyn and Vancomycin, add Probiotics blood culture is pending, followup wound care is pending (2) Quynh infection of genital region 06/28 improved. continue Nystatin top, wound care, turn 2 hours, skin protection 06/27 improved, continue nystatin top improved, and dry skin now continue nystatin powder turn pt Q2H for prevention of pressure ulcer (3) Diarrhea 06/27better, C.Diff is negative stool sample was sent and pending test, followup (4) Leukocytosis Conclusion/Plan: 06/28 WBC is 11.3, improved 06/27improved, WBC is 13 now continue antibiotics WBC 24 from 32, improved continue antibiotics continue lab and vital monitor (5) Multiple sclerosis Conclusion/Plan: 06/27 stable chronic worsening of his MS. discussed with pt and his mother. Pt's mother state pt had social media sr strategy manager to help him. They will find PCP and followup neurologist for him. (6) skin ulcer of abdomen with fat layer exposed 06/28 better, dry skin now continue antibiotics wound care consult and continue wound care and skin care continue Nystatin Top, void weight pressure pt present skin ulcer at right abdominal fat layer continue Nystatin TOP, keep dry, void weight pressure continue antibiotics wound consutlt (7) weakness 06/28 continue PT/OT, pt is recommended D/C to SNF for continuing care. PT/OT evaluation and treatment, will followup recommend
[2018-06-28] MEDS: LACTOBACILLUS RHAMNOSUS GG CAPSULE PO SCH (12:30)
[2018-06-28] MEDS: NYSTATIN POWDER 15 GM TOP SCH ×2 (12:31→21:33)
[2018-06-28] MEDS: MULTIVITAMIN W/MINERALS TABLET PO SCH (15:47)
[2018-06-29] MEDS: PANTOPRAZOLE 40 MG TABLET PO SCH (06:23)
[2018-06-29] MEDS: SODIUM CHLORIDE FLUSH 0.9% 10 ML SYRINGE IVP SCH ×3 (06:24→16:05)
[2018-06-29] MEDS: SACCHAROMYCES BOULARDII 250 MG CAPSULE PO SCH ×2 (08:43→16:04)
[2018-06-29] MEDS: CHOLECALCIFEROL 5,000 UNIT CAPSULE PO SCH (08:44)
[2018-06-29] MEDS: SULFAMETH/TRIMETH DS 800/160 MG TABLET PO SCH (08:44)
[2018-06-29] MEDS: MULTIVITAMIN W/MINERALS TABLET PO SCH (08:44)
[2018-06-29] MEDS: SERTRALINE 50 MG TABLET PO SCH (08:44)
[2018-06-29] MEDS: DONEPEZIL 5 MG TABLET PO SCH (08:44)
[2018-06-29] MEDS: cefUROXime axetil 250 MG TABLET PO SCH (08:44)
[2018-06-29] MEDS: ZINC SULFATE 220 MG CAPSULE PO SCH (08:44)
[2018-06-29] MEDS: ENOXAPARIN 40 MG/0.4 ML SYRINGE SUBQ SCH (08:45)
[2018-06-29] MEDS: LACTOBACILLUS RHAMNOSUS GG CAPSULE PO SCH (08:45)
[2018-06-29] MEDS: POLYETHYLENE GLYCOL 3350 17 GM PACKET PO SCH (08:50)
[2018-06-29] MEDS: NYSTATIN POWDER 15 GM TOP SCH (08:50)
--- NOTE | 2018-06-29 18:35 | PROVIDER PROGRESS NOTE ---
Subjective - Prog Note Date Prog Note Date: 06/29/18 Prog Note Time: 18:33 - Subjective Pt reports feeling: No change Subjective: David complains that his wound is not much improved. He wanted to know if I "knew Malik from the Malik Cameron show". He denies chest pain, shortness of breath, nausea, vomiting, diarrhea, or a new cough. He claims that his taste is off, so food tastes bad right now. Current Medications - Current Medications Current Medications: Active Medications: Baclofen (Lioresal) 10 mg PO BID [facility] Cholecalciferol (Vitamin D3) 5,000 unit PO DAILY [facility] Enoxaparin Sodium (Lovenox) 40 mg SUBQ DAILY [facility] Fluconazole (Diflucan) 200 mg PO DAILY [facility] Clindamycin Phosphate (Cleocin 600 Mg/50 Ml) 50 mls @ 100 mls/hr IV Q6HR [facility] Ciprofloxacin (Cipro 400 Mg/200 Ml) 200 mls @ 200 mls/hr IV Q12H [facility] Ibuprofen (Motrin) 600 mg PO Q6HR PRN Lactobacillus Rhamnosus (Culturelle) 1 cap PO DAILY [facility] Morphine Sulfate (Morphine (Carpuject)) 2 mg IVP Q2HR PRN Multivitamins/Minerals (Theragran M) 1 tab PO DAILYWM [facility] Ondansetron HCl (Zofran Inj) 4 mg IVP Q6HR PRN Oxycodone HCl (Roxicodone) 5 mg PO Q4HR PRN Pantoprazole Sodium (Protonix) 40 mg PO QDAC [facility] Polyethylene Glycol (Miralax) 17 gm PO DAILY [facility] Prochlorperazine Edisylate (Compazine Inj) 10 mg IVP Q6HR PRN Saccharomyces Boulardii (Florastor) 250 mg PO BIDWM [facility] Sertraline HCl (Zoloft) 100 mg PO DAILY [facility] Zinc Sulfate () 220 mg PO DAILY [facility] Zolpidem Tartrate (Ambien) 5 mg PO QPM PRN HOME meds: Baclofen 20 mg PO BID PRN 06/25/18 Donepezil HCl 10 mg PO DAILY 06/25/18 Sertraline HCl 200 mg PO DAILY 06/25/18 Objective - Vital Signs/Intake & Output Reviewed Vital Signs: Yes Vital Signs: Vital Signs x48h Temp Pulse Resp BP Pulse Ox 06/29/18 15:42 36.6 C 107 H 18 130/75 98 Intake & Output: Intake & Output 06/26/18 06/27/18 06/28/18 06/29/18 23:59 23:59 23:59 23:59 Intake Total 2737 2797 700 670 Output Total 201 550 100 100 Balance 2536 4987 600 570 - Objective General Appearance: positive: Alert, Moderate distress, Anxious Eyes Bilateral: positive: PERRL Eyes: OU Conjunctivae pale ENT: positive: Pharynx nml, Dry mucous membranes Neck: positive: Thyroid nml, No JVD Respiratory: positive: Chest non-tender, No respiratory distress, Rhonchi Cardiovascular: positive: Regular rate & rhythm, No gallop, Systolic murmur, Decreased pulse(s) Peripheral Pulses: 1+ Radial (R), 1+ Radial (L), 1+ Dorsalis pedis (R), 1+ Dorsalis pedis (L) Abdomen: positive: Non-tender, Hepatomegaly, Mass Back: positive: Nml inspection Skin: positive: No rash, Warm, Dry, Pallor Extremities: positive: Non-tender, Pedal edema, Joint swelling Neurologic/Psychiatric: positive: Disoriented to person, Disoriented to place, Disoriented to time, Weakness, Sensory loss, Slurred/abnml speech, Depressed mood/affect Reflexes: Bicep (R): 3+, Bicep (L): 3+ - Lab Results Fish Bones: 06/28/18 05:06 06/28/18 05:06 ABX Reporting Has patient been on IV antibiotics over the past 48 hours?: Yes Sepsis Event Note (H) - Evaluation Current Stage of Sepsis: Ruled out Assessment/Plan - Problem List (1) Cellulitis Impression: The patient had an extensive excoriation of skin primarily on his right hip, trunk, genital right leg and back. Comparing the admission pictures to his current state, the wounds are just as severe without IV treatment. See chart for pictures. Plan: Start PO diflucan, IV clindamycin and ciprofloxacin for more aggressive treatment. Wound care consult. Qualifiers: Site of cellulitis: trunk Site of cellulitis of trunk: back Qualified Code(s): L03.312 - Cellulitis of back [any part except buttock] (2) Quynh infection of genital region Impression: The patient continues to have yellow crusty patches with bright pink/reddened skin on exam. He states that it continues to be very painful despite the Nystatin powder that is prescribed. He notes this to be very painful. Plan: Start PO diflucan, IV clindamycin and cipro. (3) Acute metabolic encephalopathy Impression: The patient was found to be profoundly confused on exam today and has baseline cognitive delay. This is thought to be related to his acute illness. Plan: Continue to treat acute illness. (4) Hypertension Impression: This is listed in history, but is not prescribed anything at home. He was seeing Elizabeth morel as his PCP, but she is now retired. Plan: Continue to monitor, consider starting an antihypertensive on prior to discharge. Qualifiers: Hypertension type: essential hypertension Qualified Code(s): I10 - Essential (primary) hypertension (5) Dementia Impression: The patient has long standing short term memory loss. His PCP has prescribed Aricept which is mainly used to slow down the progression of dementia. Dementia is not listed in his history. Plan: Discontinue Aricept as this leads to worsening confusion and falls. Qualifiers: Dementia type: associated with other underlying disease (6) Exacerbation of multiple sclerosis Impression: The patient has permanent contractures to his BLEs and is considered bedbound. Plan: continue to treat acute infection, continue baclofen that is now scheduled. (7) Chronic major depressive disorder Impression: Depression was listed in his history and is a consequence of his other brain stem diseases of cognitive delay, MS and being bed bound at his baseline. He is on a very high dose of Sertraline, which has now been decreased given his profound confusion. Plan: Continue a lower dose of Zoloft (8) Cognitive impairment Impression: The patient has apparent baseline delay and is listed in his history. He was living with his mother and on exam, he wonders where she has been today. Plan: Continue to treat acute illness.
[2018-06-29] MEDS ORDERED: CLINDAMYCIN 600 MG/50 ML 50 ML IV SCH (19:00)
[2018-06-29] MEDS: BACLOFEN 10 MG TABLET PO SCH (20:09)
[2018-06-29] MEDS: SODIUM CHLORIDE FLUSH 0.9% 10 ML SYRINGE IVP PRN (20:50)
[2018-06-29] MEDS: CIPROFLOXACIN 400 MG/200 ML 200 ML IV SCH (21:26)
[2018-06-30] MEDS: SODIUM CHLORIDE FLUSH 0.9% 10 ML SYRINGE IVP SCH ×3 (02:14→15:38)
[2018-06-30] MEDS: CLINDAMYCIN 600 MG/50 ML 50 ML IV SCH ×4 (02:23→20:59)
[2018-06-30] MEDS: PANTOPRAZOLE 40 MG TABLET PO SCH (05:47)
[2018-06-30] MEDS: MULTIVITAMIN W/MINERALS TABLET PO SCH (07:47)
[2018-06-30] MEDS: SACCHAROMYCES BOULARDII 250 MG CAPSULE PO SCH ×2 (07:47→17:07)
[2018-06-30] MEDS: FLUCONAZOLE 100 MG TABLET PO SCH (08:59)
[2018-06-30] MEDS: BACLOFEN 10 MG TABLET PO SCH ×2 (08:59→20:58)
[2018-06-30] MEDS: ENOXAPARIN 40 MG/0.4 ML SYRINGE SUBQ SCH (08:59)
[2018-06-30] MEDS: CHOLECALCIFEROL 5,000 UNIT CAPSULE PO SCH (08:59)
[2018-06-30] MEDS: POLYETHYLENE GLYCOL 3350 17 GM PACKET PO SCH (09:00)
[2018-06-30] MEDS: ZINC SULFATE 220 MG CAPSULE PO SCH (09:00)
[2018-06-30] MEDS: SERTRALINE 50 MG TABLET PO SCH (09:00)
[2018-06-30] MEDS: LACTOBACILLUS RHAMNOSUS GG CAPSULE PO SCH (09:00)
[2018-06-30] MEDS: CIPROFLOXACIN 400 MG/200 ML 200 ML IV SCH ×2 (09:47→21:38)
[2018-06-30] MEDS ORDERED: LIDOCAINE JELLY 2% 5 ML TUBE TOP ONE (11:39)
[2018-06-30] MEDS ORDERED: ZINC OXIDE 20% OINT 28.35 GM TUBE TOP PRN (12:39)
[2018-06-30] MEDS ORDERED: SODIUM CHLORIDE 0.9% 1,000 ML IV SCH (15:00)
--- NOTE | 2018-06-30 15:08 | PROVIDER PROGRESS NOTE ---
Subjective - Prog Note Date Prog Note Date: 06/30/18 Prog Note Time: 15:07 - Subjective Pt reports feeling: Improved Subjective: Oscar has no complaints when asked and is noted to be more frisky than previously since his wounds are improving. He denies chest pain, shortness of breath, nausea, vomiting, diarrhea, a new rash, a new cough, or dizziness. He admits to a poor appetite since the time of admission. * He has had an extended stay past his usual 96 hours due to a lack of improvement in his wounds, his treatment has been changed from PO to IV. Current Medications - Current Medications Current Medications: Active Medications: Baclofen (Lioresal) 10 mg PO BID [facility] Cholecalciferol (Vitamin D3) 5,000 unit PO DAILY [facility] Enoxaparin Sodium (Lovenox) 40 mg SUBQ DAILY [facility] Fluconazole (Diflucan) 200 mg PO DAILY [facility] Ciprofloxacin (Cipro 400 Mg/200 Ml) 200 mls @ 200 mls/hr IV Q12H [facility] Clindamycin Phosphate (Cleocin 600 Mg/50 Ml) 50 mls @ 100 mls/hr IV Q6H [facility] Sodium Chloride (Normal Saline 0.9%) 1,000 mls @ 0 mls/hr IV .Q0M [facility] Ibuprofen (Motrin) 600 mg PO Q6HR PRN Lactobacillus Rhamnosus (Culturelle) 1 cap PO DAILY [facility] Mirtazapine (Remeron) 7.5 mg PO QPM [facility] Morphine Sulfate (Morphine (Carpuject)) 2 mg IVP Q2HR PRN Multi-Ingredient Ointment (Zinc Oxide) 1 applic TOP PRN PRN Multivitamins/Minerals (Theragran M) 1 tab PO DAILYWM [facility] Ondansetron HCl (Zofran Inj) 4 mg IVP Q6HR PRN Oxycodone HCl (Roxicodone) 5 mg PO Q4HR PRN Pantoprazole Sodium (Protonix) 40 mg PO QDAC [facility] Polyethylene Glycol (Miralax) 17 gm PO DAILY [facility] Prochlorperazine Edisylate (Compazine Inj) 10 mg IVP Q6HR PRN Saccharomyces Boulardii (Florastor) 250 mg PO BIDWM [facility] Sertraline HCl (Zoloft) 100 mg PO DAILY [facility] Zinc Sulfate () 220 mg PO DAILY [facility] HOME meds: Baclofen 20 mg PO BID PRN 01/25/19 Donepezil HCl 10 mg PO DAILY 06/25/18 Sertraline HCl 200 mg PO DAILY 06/25/18 Objective - Vital Signs/Intake & Output Reviewed Vital Signs: Yes Vital Signs: Vital Signs x48h Temp Pulse Resp BP Pulse Ox 06/30/18 08:11 36.7 C 94 20 108/62 96 Intake & Output: Intake & Output 06/27/18 06/28/18 06/29/18 06/30/18 23:59 23:59 23:59 23:59 Intake Total 2797 700 1507.000 740 Output Total 550 100 100 Balance 2247 600 1407.000 740 - Objective General Appearance: positive: Alert, Mild distress, Anxious Eyes Bilateral: positive: PERRL Eyes: OU Conjunctivae pale ENT: positive: Pharynx nml, Dry mucous membranes Neck: positive: Thyroid nml, No JVD Respiratory: positive: Chest non-tender Cardiovascular: positive: Regular rate & rhythm, No gallop, Systolic murmur Peripheral Pulses: 1+ Radial (R), 1+ Radial (L) Abdomen: positive: Non-tender, Nml bowel sounds, Hepatomegaly Back: positive: Nml inspection Skin: positive: No rash, Warm, Dry, Other (bronze) Extremities: positive: Non-tender, Full ROM, Pedal edema, Joint swelling, Other (muscle atrophy) Neurologic/Psychiatric: positive: Disoriented to place, Disoriented to time, Weakness, Sensory loss, Depressed mood/affect Reflexes: Bicep (R): 3+, Bicep (L): 3+ - Lab Results Fish Bones: 06/28/18 05:06 06/28/18 05:06 Other Labs: Lab Results x24hrs 06/29/18 Range/Units 05:00 25-OH Vitamin D Total 24 L (30-100) ng/mL ABX Reporting Has patient been on IV antibiotics over the past 48 hours?: Yes Sepsis Event Note (H) - Evaluation Current Stage of Sepsis: Ruled out Assessment/Plan - Problem List (1) Cellulitis Impression: The patient had an extensive excoriation of skin primarily on his right hip, trunk, genital right leg and back. Comparing the admission pictures to his current state, the wounds were just as severe without IV treatment. See chart for pictures. As per wound care provider her impression: An unstagable pressure injury over the Right Trochanter which is surrounded by moisture-associated dermatitis with evidence of yeast growth and cellulitis. Plan: Continue PO diflucan, IV clindamycin and ciprofloxacin for more aggressive treatment. Wound care is following. Qualifiers: Site of cellulitis: trunk Site of cellulitis of trunk: back Qualified Code(s): L03.312 - Cellulitis of back [any part except buttock] (2) Pressure ulcer of trochanteric region of right hip Impression: The patient was seen by wound care today who describes the raised area of his right hip as actually a pressure ulcer. Plan: Avoid right sided positioning. Fall precautions. Continue to treat surrounding skin. Wound care is following. Qualifiers: Pressure injury stage: unstageable Qualified Code(s): L89.210 - Pressure ulcer of right hip, unstageable (3) Quynh infection of genital region Impression: The patient continues to have yellow crusty patches with bright pink/reddened skin on exam. He states that it continues to be very painful despite the Nystatin powder that is prescribed. He notes this to be very painful. Plan: Start PO diflucan, IV clindamycin and cipro. (4) Acute metabolic encephalopathy Impression: The patient was found to be less confused on exam today and has baseline cognit philippe delay. This is thought to be related to his acute illness. Nursing notes state, "RN returned from lunch to find patient turned around to the foot of bed, IV had been dislodged. Patient did not fall, remained in the bed. RN and CNAs assisted patient to proper positioning". Plan: Continue to treat acute illness and monitor mental status, fall precautions. (5) Hypertension Impression: This is listed in history, but is not prescribed anything at home. He was seeing Elizabeth hussein patient as his PCP, but she is now retired. Plan: Continue to monitor, consider starting an antihypertensive on prior to discharge. Qualifiers: Hypertension type: essential hypertension Qualified Code(s): I10 - Ess ential (primary) hypertension (6) Dementia Impression: The patient has long standing short term memory loss. His PCP has prescribed Aricept which is mainly used to slow down the progression of dementia. Dementia is not listed in his history. Aricept was discontinued yesterday, as this leads to worsening confusion and falls. Plan: Continue to monitor mental status. Qualifiers: Dementia type: associated with other underlying disease (7) Exacerbation of multiple sclerosis Impression: The patient has permanent contractures to his BLEs and is considered bedbound. Plan: continue to treat acute infection, continue baclofen that is now scheduled. PT to evaluate prior to discharge. (8) Chronic major depressive disorder Impression: Depression was listed in his history and is a consequence of his other brain stem diseases of cognitive delay, MS and being bed bound at his baseline. He is on a very high dose of Sertraline, which has now been decreased given his profound confusion. Plan: Continue a lower dose of Zoloft. Monitor for arsenal or homicidal behaviors. (9) Cognitive impairment Impression: The patient has apparent baseline delay and is listed in his history. He was living with his mother and on exam, he wonders where she has been today. Plan: Continue to treat acute illness. (10) Anorexia Impression: The patient has had a poor appetite and states that the cause of this is that his taste buds are not right. Nursing has charted between 50-75% of meals consumed. Plan: Start Remoron at a low dose of 7.5mg nightly to stimulate appetite.
[2018-06-30] MEDS ORDERED: MIRTAZAPINE 15 MG TABLET PO SCH (21:00)
[2018-07-01] MEDS: SODIUM CHLORIDE FLUSH 0.9% 10 ML SYRINGE IVP SCH ×2 (02:27→09:18)
[2018-07-01] MEDS: CLINDAMYCIN 600 MG/50 ML 50 ML IV SCH ×2 (03:16→09:17)
[2018-07-01 05:54] LABS: BASOPHILS % (AUTO) 1.1 %; EOSINOPHILS % (AUTO) 1.3 %; HGB - HEMOGLOBIN 13.1 g/dL (14.0-18.0); LYMPHOCYTES % (AUTO) 14.9 %; MEAN CORPUSCULAR HEMOGLOBIN 29.3 pg (27.0-31.0); MEAN CORPUSCULAR VOLUME 88.8 fL (80.0-94.0); MEAN PLATELET VOLUME 7.8 fL (7.4-11.4); MONOCYTES % (AUTO) 7.4 %; NEUTROPHILS % (AUTO) 75.3 %; PLT - PLATELET COUNT 402 10^3/uL (130-450); RED BLOOD COUNT 4.48 10^6/uL (4.70-6.10); RED CELL DISTRIBUTION WIDTH 13.6 % (12.0-15.0)
[2018-07-01 05:57] LABS: ABNORMAL LYMPHS % (MANUAL) 0 %
[2018-07-01 06:02] LABS: ALBUMIN 3.3 g/dL (3.2-5.5); ALBUMIN/GLOBULIN RATIO 0.9 (1.0-2.2); BILIRUBIN,TOTAL 0.5 mg/dL (0.2-1.0); CALCIUM 8.8 mg/dL (8.5-10.3); CREATININE 1.1 mg/dL (0.6-1.2); MAGNESIUM 2.8 mg/dL (1.7-2.8); PHOSPHORUS 4.6 mg/dL (2.5-4.6)
[2018-07-01 06:15] LABS: BAND NEUTROPHILS % (MANUAL) 2 %; BASOPHILS # (MANUAL) 0.1 10^3/uL (0-0.1); BASOPHILS % (MANUAL) 1 %; DIFFERENTIAL COMMENT MANUAL DIFFERENTIAL; LYMPHOCYTES # (MANUAL) 1.2 10^3/uL (1.5-3.5); LYMPHOCYTES % (MANUAL) 12 %; METAMYELOCYTES % (MANUAL) 3 %; MONOCYTES # (MANUAL) 0.9 10^3/uL (0.0-1.0); MYELOCYTES % (MANUAL) 3 %; NEUTROPHILS # (MANUAL) 7.2 10^3/uL (1.5-6.6); NEUTROPHILS % (MANUAL) 70 %; PLATELET ESTIMATE, MANUAL NORMAL (130-450,000) (NORMAL); RBC MORPHOLOGY (MULTIPLE) NORMAL APPEARANCE (NORMAL)
[2018-07-01] MEDS: PANTOPRAZOLE 40 MG TABLET PO SCH (06:27)
--- NOTE | 2018-07-01 07:11 | Discharge Plan ---
"Discharge Plan for SNF / [facility] - Discharge Plan And Transition Orders Disposition: 03 SNF DC/Xfer Condition: Good Allergies and Adverse Reactions: Allergies Allergy/AdvReac Type Severity Reaction Status Date / Time No Known Drug Allergies Allergy Verified 06/25/18 15:15 - SNF / INTERMEDIATE Transition Orders Admit to (Facility): [facility] Under the care of (Name): Elizabeth Rios Discharge Diagnosis: Cellulitis of multiple sites of buttock (L03.317) improved, treatment to continue at SNF for routine wound cares. Pressure ulcer of trochanteric region of right hip (L89.219) improved, avoiding turns to the right while in bed, continue treatment and wound care. Leukocytosis (D72.829) resolved. On admission the patient had an elevated WBC count of 26. Acute metabolic encephalopathy (G93.41) improved, but with the baseline cognitive delay, this is difficult to distinguish at times. MS (multiple sclerosis) (G35) chronic, stable. Hypertension (I10) chronic, stable. Chronic major depressive disorder (F34.1) chronic, stable. Quynh infection of genital region (B37.49) Dementia (F03.90) chronic, stable. Cognitive impairment (R41.89) chronic, stable. Anorexia (R63.0) improved appetite over the past 24 hours as his overall condition improves. Weakness (R53.1) progressive, PT suggests rehab for potential strengthening. Unspecified severe protein-calorie malnutrition (E43) Insomnia (G47.00) chronic, stable. Normocytic anemia (D64.9) chronic, stable. Medicare Certification Statement: I certify that Post Hospital fdc care is medically necessary on a continuing basis for any of the conditions for which she/he is receiving care during hospitalization. Notify PCP of admission and forward orders to primary provider for signature. Weight on admission and: Monthly Additional Bowel Program Orders: If no BM after 2 days, nurse may give M.O.M. 30ml PO PRN and/or ducolax Supp 1 OH and/or RANDI 250mg P.O., and/or senna 1-2 tabs PO. On day 3 nurse may give repeat above order until residents constipation is resolved. Treatments & Other Orders: Discharge wound care orders: Cover all wounds with plain bordered foam dressings, change every 3-4 days and PRN strikethrough or soiling. Offload Right side as much as possible, discuss complex wound care c onsultation if wound condition deteriorates Medication Orders: PLEASE REFER TO THE DISCHARGE MEDICATION LIST. - Medications New Prescriptions: amLODIPine [Norvasc] 5 mg PO DAILY #30 tablet Cholecalciferol (Vitamin D3) [Vitamin D3] 1,000 unit PO DAILY #30 capsule Clindamycin HCl [Clindamycin 300MG CAP] 300 mg PO TIDWM #30 capsule Lactobacillus Rhamnosus GG [Culturelle] 1 cap PO DAILY #30 capsule Mirtazapine [Remeron] 7.5 mg PO QPM #15 tablet Multivitamin W/Minerals [Theragran M] 1 tab PO DAILYWM #30 tablet Pantoprazole [Protonix] 40 mg PO QDAC #30 tablet Sertraline HCl [Zoloft] 100 mg PO DAILY #30 tablet - Diet Type: Geriatric Texture: Regular Liquids: Thin May have monthly special meal: Yes - Therapies | Activity Therapy: Evaluation | Treat if indicated: Speech, PT, OT Rehabilitation Potential: Maximize functional status, Maintain present ADL Functional Activity: Activity as Tolerated Weight Bearing: Full Weight Assistance Devices: Wheelchair, Walker"
--- NOTE | 2018-07-01 09:01 | DISCHARGE SUMMARY ---
"Discharge Summary Admit Date: 06/25/18 Discharge Date: 07/01/18 Discharging Provider: WAYNE Quiñonez Primary Care Provider: Elizabeth Rios Code Status: Attempt Resuscitation Condition at Discharge: Good Discharge Disposition: SNF DC/Xfer - DIAGNOSES Admission Diagnoses: Cellulitis of buttock Quynh infection of genital region Diarrhea Leukocytosis Multiple sclerosis Discharge Diagnoses with Status of Each Condition: Cellulitis of multiple sites of buttock (L03.317) improved, treatment to continue at SNF for routine wound cares. Pressure ulcer of trochanteric region of right hip (L89.219) improved, avoiding turns to the right while in bed, continue treatment and wound care. Leukocytosis (D72.829) resolved. On admission the patient had an elevated WBC count of 26. Acute metabolic encephalopathy (G93.41) improved, but with the baseline cognitiv e delay, this is difficult to distinguish at times. MS (multiple sclerosis) (G35) chronic, stable. Hypertension (I10) chronic, stable. Chronic major depressive disorder (F34.1) chronic, stable. Quynh infection of genital region (B37.49) Dementia (F03.90) chronic, stable. Cognitive impairment (R41.89) chronic, stable. Anorexia (R63.0) improved appetite over the past 24 hours as his overall condi tion improves. Weakness (R53.1) progressive, PT suggests rehab for potential strengthening. Unspecified severe protein-calorie malnutrition (E43) Insomnia (G47.00) chronic, stable. Normocytic anemia (D64.9) chronic, stable. - HPI History of Present Illness: HPI per Dr. Varghese: Patient is a 52-year-old male with past medical history of multiple sclerosis who has had progressive weakness of the lower extremities over the last couple of weeks. He also developed diarrhea about 5 days ago as well as a rash in the groin and buttocks about 5 days ago as well. Patient states that because of the weakness, whereas he was previously able to at least transition from chair to bed and so on, he has been weak in both upper and more so lower extremities to the extent that he has been bedbound and he has also developed diarrhea in the last day or so which means he has been having bowel movements in bed and has remained soiled until his mother has been able to clean him. As she was cleaning him today she noticed that his rash around his lower back buttock and groin is getting worse and so she decided to bring him to the hospital. He denies any fever, pain, nausea or vomiting, headache, visual changes. He has chronic decreased sensation to the lower half of his body and states that this is currently at his baseline. While he has had diarrhea, he has not had any changes in his urinary habits. In the emergency room, the patient was found to have an elevated white count of 32, and due to the significance of the rash a CT scan of the abdomen and pelvis was ordered which does not demonstrate any evidence of gangrene, abscess, or loculated fluid collection. Findings are consistent with cellulitis. He was given a dose of vancomycin in the emergency room, and the hospitalist service was called to admit. - CONSULTS | PROCEDURES Consultations: Wound care consult - HOSPITAL COURSE Hospital Course: The patient started out with oral treatment of oral Ceftin and oral TMP-sulfa. After day #4, the patient continued to have no appetite, and his skin condition was very similar in appearance to the admission photos noted in the chart at the time of admission. Given his lack of improvement and continued yeasty appearance, he was started on oral Diflucan, IV cipro, IV clindamycin that improved his affected skin by about 50% after 12 hours of IV treatment. His appetite was improved, but he was also started on low dose Remeron to stimulate his appetite. It was known since admission that his mother could no longer physically care for him as he was immobile and failing at home. PT evaluated him and found him to have rehab potential. His baseline cognitive delay, dementia and MS did not cause behavioral problems and he remained agreeable to our requests, cheerful, and happy. He was much improved and medically cleared for discharge of which he will be transported via BLS to [facility] in [place] and a potential of group home placement after that. - ALLERGIES Allergies/Adverse Reactions: Allergies Allergy/AdvReac Type Severity Reaction Status Date / Time No Known Drug Allergies Allergy Verified 06/25/18 15:15 - MEDICATIONS Home Medications: Ambulatory Orders Medication Instructions Recorded Confirmed Baclofen [Lioresal] 10 mg PO BID #60 tablet 07/01/18 Cholecalciferol (Vitamin D3) 1,000 unit PO DAILY #30 capsule 07/01/18 [Vitamin D3] Clindamycin HCl [Clindamycin 300MG 300 mg PO TIDWM #30 capsule 07/01/18 CAP] Lactobacillus Rhamnosus GG 1 cap PO DAILY #30 capsule 07/01/18 [Culturelle] Mirtazapine [Remeron] 7.5 mg PO QPM #15 tablet 07/01/18 Multivitamin W/Minerals [Theragran 1 tab PO DAILYWM #30 tablet 07/01/18 M] Pantoprazole [Protonix] 40 mg PO QDAC #30 tablet 07/01/18 Sertraline HCl [Zoloft] 100 mg PO DAILY #30 tablet 07/01/18 amLODIPine [Norvasc] 5 mg PO DAILY #30 tablet 07/01/18 - PHYSICAL EXAM AT DISCHARGE General Appearance: positive: No acute distress, Alert Eyes Bilateral: positive: PERRL ENT: positive: Pharynx nml, No signs of dehydration Neck: positive: Thyroid nml, No JVD, Trachea midline Respiratory: positive: Chest non-tender, No respiratory distress, Breath sounds nml Cardiovascular: positive: Regular rate & rhythm, No gallop, Systolic murmur Peripheral Pulses: positive: 1+ Abdomen: positive: Nml bowel sounds, Hepatomegaly Back: positive: Nml inspection Skin: positive: No rash, Warm, Dry, Other (bronze) Extremities: positive: Non-tender, Nml appearance, Joint swelling Neurologic/Psychiatric: positive: Disoriented to time, Weakness, Sensory loss, Slurred/abnml speech, Depressed mood/affect, Other (baseline cognitive delay) Reflexes: Bicep (R): 3+, Bicep (L): 3+ - LABS Result Diagrams: 07/01/18 05:30 07/01/18 05:30 - DIAGNOSTIC IMAGING Diagnostic Imaging Results: Final report reviewed Diagnostic Imaging Results Comments: EXAM: CHEST RADIOGRAPHY EXAM DATE: 06/25/2018 04:41 PM IMPRESSION: Normal single view chest. EXAM: CT ABDOMEN AND PELVIS EXAM DATE: 06/25/2018 06:48 PM. IMPRESSION: 1. Right hip, right anterior abdominal wall and left gluteal fat stranding. No collections concerning for an abscess. No subcutaneous emphysema. 2. Diverticulosis. Normal appendix. No inflammation or obstruction. 3. Right- sided bladder stone. Bladder otherwise unremarkable. - SEPSIS Current Stage of Sepsis: Ruled out - FOLLOW UP Follow Up: dmit to (Facility): [facility] [place] Under the care of (Name): Elizabeth Rios - TIME SPENT Time Spent in Discharge (Minutes): 50"
[2018-07-01] MEDS: ENOXAPARIN 40 MG/0.4 ML SYRINGE SUBQ SCH (09:17)
[2018-07-01] MEDS: ZINC SULFATE 220 MG CAPSULE PO SCH (09:17)
[2018-07-01] MEDS: LACTOBACILLUS RHAMNOSUS GG CAPSULE PO SCH (09:17)
[2018-07-01] MEDS: SACCHAROMYCES BOULARDII 250 MG CAPSULE PO SCH (09:17)
[2018-07-01] MEDS: BACLOFEN 10 MG TABLET PO SCH (09:17)
[2018-07-01] MEDS: FLUCONAZOLE 100 MG TABLET PO SCH (09:17)
[2018-07-01] MEDS: SERTRALINE 50 MG TABLET PO SCH (09:17)
[2018-07-01] MEDS: MULTIVITAMIN W/MINERALS TABLET PO SCH (09:17)
[2018-07-01] MEDS: CHOLECALCIFEROL 5,000 UNIT CAPSULE PO SCH (09:17)
[2018-07-01] MEDS: POLYETHYLENE GLYCOL 3350 17 GM PACKET PO SCH (09:18)
[2018-07-01] MEDS: CIPROFLOXACIN 400 MG/200 ML 200 ML IV SCH (10:03)
[2018-07-01 10:32] VITALS: BP 125/74
== END 2018-07-01 12:05 | DRG 602 ==
LOC: EDUNIT# → ED 14:55 → MS2 19:47
PROVIDERS: ADMIT Family Medicine Sports Medicine; ATTEND Nurse Practitioner
DX: L03.317 Cellulitis of buttock (principal); G93.41 Metabolic encephalopathy; B37.2 Candidiasis of skin and nail; R19.7 Diarrhea, unspecified; R11.0 Nausea; E43 Unspecified severe protein-calorie malnutrition; F12.10 Cannabis abuse, uncomplicated; L03.312 Cellulitis of back [any part except buttock and flank]; B37.89 Other sites of candidiasis; L89.210 Pressure ulcer of right hip, unstageable; G35 Multiple sclerosis; I10 Essential (primary) hypertension; F32.9 Major depressive disorder, single episode, unspecified; F03.90 Unspecified dementia, unspecified severity, without behavioral disturbance, psychotic disturbance, mood disturbance, and anxiety; R63.0 Anorexia; Z68.38 Body mass index [BMI] 38.0-38.9, adult; G47.00 Insomnia, unspecified; D64.9 Anemia, unspecified; L98.492 Non-pressure chronic ulcer of skin of other sites with fat layer exposed
CPT/HCPCS: 36415; 71045; 74177; 80048; 80053; 80202; 81001; 81003; 82306; 82550; 83605; 83690; 83735; 84100; 85025; 85027; 87040; 87045; 87046; 87086; 87493; 96365; 96367; 99284

== ENCOUNTER → 2018-06-25 | Outpatient (CLI) | payer MEDICARE, MEDICAID | END | disposition critical access hospital (66) | LOC: EMS 14:13 | PROVIDERS: ATTEND Surgery | DX: L98.9 Disorder of the skin and subcutaneous tissue, unspecified (principal); G35 Multiple sclerosis | CPT/HCPCS: A0425; A0429 ==